=== PATIENT | female | born 1990 | race Caucasian/White ===

== ENCOUNTER 2018-08-05 08:22 | Emergency (ER) | payer MEDICAID ==
[~2018-08-05] VITALS: Ht 167.6 cm; Wt 68.0 kg
[2018-08-05 08:38] VITALS: BP 137/73
--- NOTE | 2018-08-05 08:45 | NUR ---
BIB SELF C/O ANAL DISCOMFORT X 1 DAY. PT HAS CONSTIPATION. LAST BM 08/04/18, FEELS VAGINAL PRESSURE AT THE SAME TIME. DISCOMFORT UPON SEXUAL INTERCOURSE. ABD PAIN, -PAIN WITH URINATION, +HESISTANCY, BED IS DOWN, LOCKED, BED RAIL X1, ERMD NOTIFIED MED HX: CONSTIPATION, HEMMORHOIDS ALLERGIES:SULFA
--- NOTE | 2018-08-05 10:00 | NUR ---
DR IVY AT BEDSIDE
[2018-08-05] MEDS ORDERED: KETOROLAC 30 MG/ML VIAL IVP ONE (10:05)
[2018-08-05] MEDS ORDERED: NACL 0.9% 1,000 ML IV ONE (10:05)
--- NOTE | 2018-08-05 10:24 | NUR ---
ATTEMPTED TO INSERT IV CATH IN LEFT HAND WITHOUT SUCCESS. PATIENT TOLERATED WELL. INFORMED CHARGE NURSE, KATHY. HE STATED HE WOULD ATTEMPT.
--- NOTE | 2018-08-05 10:33 | NUR ---
PATIENT IN BED, KATHY KONG AT BEDSIDE ATTEMPTING IV
[2018-08-05] MEDS ORDERED: KETOROLAC 30 MG/ML VIAL IM ONE (10:55)
--- NOTE | 2018-08-05 10:55 | NUR ---
SPOKE WITH DR IVY REGARDING PATIENTS CARE. UNABLE TO OBTAIN IV, PATIENT NOW REFUESING IV. DR IVY STATED WE COULD JUST PUSH ORAL FLUIDS.
[2018-08-05 12:09] VITALS: BP 130/78
--- NOTE | 2018-08-05 12:10 | NUR ---
Patient discharged with v/s stable. Written and verbal after care instructions given and explained. Patient alert, oriented and verbalized understanding of instructions. Ambulatory with steady gait. All questions addressed prior to discharge. ID band removed. Patient advised to follow up with PMD. Rx of LACTULOSE AND MINERAL OIL given. Patient educated on indication of medication including possible reaction and side effects. Opportunity to ask questions provided and answered.
== END 2018-08-05 12:10 | disposition home or self-care (01) ==
LOC: MED 08:22
DX: R10.30 Lower abdominal pain, unspecified (principal); M54.5 Low back pain; K59.00 Constipation, unspecified; Z88.2 Allergy status to sulfonamides
CPT/HCPCS: 74022; 81002; 81025; 96372; 99283; J1885